=== PATIENT | female | born 1940 | race Caucasian/White ===

== ENCOUNTER 2016-08-21 13:38 | Emergency (ER) | payer OTHER ==
[~2016-08-21] VITALS: Ht 165.1 cm; Wt 45.4 kg
[2016-08-21 14:01] VITALS: BP 169/98
[2016-08-21 14:32] LABS: PT 12.2 SEC (9.4-12.5)
[2016-08-21 14:33] LABS: ABSOLUTE BASOPHIL COUNT 0 /CUMM (0.0-0.2); ABSOLUTE EOSINOPHIL COUNT 0.1 /CUMM (0.0-0.7); ABSOLUTE GRANULOCYTE CT 5.3 /CUMM (1.4-6.5); ABSOLUTE LYMPH COUNT 0.8 /CUMM (1.2-3.4); ABSOLUTE MONOCYTE COUNT 0.6 /CUMM (0.10-0.60); BASOPHIL % 0.4 % (0.0-2.0); EOSINOPHIL % 1.3 % (0-5); GRANULOCYTE % 78.7 % (42.2-75.2); HEMATOCRIT 41.4 % (37-47); MEAN CORPUSCULAR HGB 28.8 PG (27.0-31.0); MEAN CORPUSCULAR HGB CONC 32.3 G/DL (33.0-37.0); MEAN CORPUSCULAR VOLUME 89.3 FL (81.0-99.0); PLATELET COUNT 269 /CUMM (130-400); RBC DISTRIBUTION WIDTH 13.5 % (11.5-14.5); RED BLOOD CELL CT 4.64 /CUMM (4.20-5.40); WHITE BLOOD CELL COUNT 6.8 /CUMM (4.8-10.8)
--- NOTE | 2016-08-21 15:49 | ED GI/GU/ABDOMINAL COMPLAINT ---
History of Present Illness General Chief Complaint: General Adult Stated Complaint: SENT BY DR. SIEGEL FOR ?GI BLEED Source: patient, family Exam Limitations: no limitations Vital Signs & Intake/Output Vital Signs & Intake/Output Vital Signs Date Time Temp Pulse Resp B/P B/P Pulse O2 O2 Flow FiO2 Mean Ox Delivery Rate 08/21 1401 98.2 85 16 169/98 98 Room Air Room Air ED Intake and Output 08/22 0000 08/21 1200 Intake Total 0 Output Total Balance 0 Intake, Oral 0 Patient 99 lb 15.99 oz Weight Allergies Coded Allergies: No Known Allergies (08/21/16) Reconcile Medications Donepezil HCl 5 MG TABLET 1 TAB PO DAILY MEMORY (Reported) Losartan Potassium 50 MG TABLET 1 TAB PO DAILY BP (Reported) Multivitamin (Multi-Day Vitamins) 1 EACH TABLET 1 TAB PO DAILY SUPPLEMENT ( Reported) Pravastatin Sodium 10 MG TABLET 1 TAB PO DAILY CHOLESTEROL (Reported) Triage Note: PT TO TRIAGE WITH ABD PRESSURE SINCE SUNDAY AND HAS HAD A SMALL AMOUNT OF BRIGHT RED BLOOD. PT STATES THE STOOLS HAS BECOME MORE RED. CURRENTLY DENIES PAIN, BUT DOES INCREASE WITH PALPOATION TO LOWER ABD. DENIES N/V POR FEVERS PT DENIES BLOOD THINNERS Triage Nurses Notes Reviewed? yes ? n Is pt currently ? No Onset: Abrupt Duration: day(s): (4) Timing: recent history Location: rectal Radiation: no radiation No Modifying Factors: none HPI: 76 year old female who presents to the ER with her for chief complaint of 4 days of blood mixed with bright red blood. She states that it started 4 days ago while travelling to [facility]. No nausea or vomiting. No blood thinners. Denies any fever or chills. Today she went to see her PCP who referred her here to the ED. Admits to some mild bloating. States she had some blood in her stool earlier today. Previous colonoscopy in 2012 which she states may have had some abnormalities. Past History Travel History Traveled to [place] past 21 day No Medical History Any Pertinent Medical History? see below for history Neurological: dementia EENT: NONE Cardiovascular: hypertension, hyperlipidemia Respiratory: NONE Gastrointestinal: diverticulitis Hepatic: NONE Renal: NONE Musculoskeletal: NONE Psychiatric: NONE Endocrine: NONE Blood Disorders: NONE Cancer(s): NONE Surgical History Surgical History: non-contributory Psychosocial History What is your primary language Ghanaian Tobacco Use: Never used ETOH Use: denies use Illicit Drug Use: denies illicit drug use Family History Hx Contributory? No Review of Systems Review of Systems Constitutional: Denies: chills, fever. EENTM: Reports: no symptoms. Respiratory: Denies: short of breath. Cardiovascular: Denies: chest pain. GI: Reports: see HPI (CR[place]). Genitourinary: Reports: no symptoms. Musculoskeletal: Reports: no symptoms. Skin: Reports: no symptoms. Neurological/Psychological: Reports: anxiety. Hematologic/Endocrine: Reports: bleeding. Immunologic/Allergic: Reports: no symptoms. All Other Systems: Reviewed and Negative Physical Exam Physical Exam General Appearance: alert, awake, anxious, mild distress, thin Head: atraumatic, normal appearance Eyes: Bilateral: normal appearance, PERRL, EOMI. Ears, Nose, Throat, Mouth: moist mucous membrane Neck: normal inspection, supple, full range of motion Respiratory: normal breath sounds, chest non-tender, no respiratory distress Cardiovascular: regular rate/rhythm Peripheral Pulses: 2+ radial (R), 2+ radial (L) Gastrointestinal: normal bowel sounds, soft, non-tender Rectal: BROWN, GUIAC NEGATIVE STOOL Back: normal inspection, normal range of motion Extremities: normal range of motion Neurologic/Psych: no motor/sensory deficits, awake, alert, oriented x 3 Skin: intact, normal color, cyanosis Core Measures ACS in differential dx? No Severe Sepsis Present: No Septic Shock Present: No Progress Differential Diagnosis: ischemic bowel, COLITIS, HEMORRHOIDS, RED STOOLS Plan of Care: Orders Procedure Date/time Status MISTAKE 08/21 1603 Active URINALYSIS 08/21 140 Complete PROTHROMBIN TIME 08/21 1403 Complete LACTIC ACID 08/21 1403 Complete COMPREHENSIVE METABOLIC PANEL 08/21 1403 Complete CBC WITHOUT DIFFERENTIAL 08/21 1403 Complete Laboratory Tests 08/21/16 1703: Lactic Acid Cancelled 08/21/16 1623: Urine Color YEL, Urine Clarity CLEAR, Urine pH 6.5, Ur Specific [place] 1.020, Urine Protein NEG, Urine Ketones NEG, Urine Nitrite NEG, Urine Bilirubin NEG, Urine Urobilinogen 0.2, Ur Leukocyte Esterase NEG, Ur Microscopic EXAM NOT REQUIRED, Urine Hemoglobin NEG, Urine Glucose NEG 08/21/16 1412: Anion Gap 11, Estimated GFR > 60, BUN/Creatinine Ratio 28.6 H, Glucose 82, Lactic Acid 0.9, Calcium 9.8, Total Bilirubin 0.6, AST 39 H, ALT 47, Alkaline Phosphatase 54, Total Protein 7.4, Albumin 4.4, Globulin 3.0, Albumin/Globulin Ratio 1.5, PT 12.2, INR 1.16, CBC w Diff NO MAN DIFF REQ, RBC 4.64, MCV 89.3, MCH 28.8, RDW 13.5, MPV 8.0, Gran % 78.7 H, Lymphocytes % 11.4 L, Monocytes % 8.2, Eosinophils % 1.3, Basophils % 0.4, Absolute Granulocytes 5.3, Absolute Lymphocytes 0.8 L, Absolute Monocytes 0.6, Absolute Eosinophils 0.1, Absolute Basophils 0, PUBS MCHC 32.3 L H/H WNL. ORTHOSTATICS NEGATIVE. STOOL EXAMINATION IS NEGATIVE FOR BLOOD. KAYLA HAD A BM IN THE ED WHICH THE NURSE SAW AND SHE STATES THAT THE STOOL APPEARED REDDISH BUT NOT BLOODY. ABDOMEN IS SOFT, NONTENDER. WILL FOLLOW UP OUTPATITNE WITH GI. HAD PREVIOUS COLONOSCOPY [place] [address] GRIMES BUT PREFERS TO BE REFERRED TO GI. INSTRUCTED TO RETURN IMMEDIATELY FOR WORSENING SYMPTOMS. 4:49 PM NO BLOOD IN STOOL ON EXAM ORTHOSTATICS NEGATIVE H/H BASELINE (HERMELINDA PINK,MAYE) Initial ED EKG: none Departure Departure Time of Disposition: 1646 Disposition: HOME OR SELF CARE Condition: Stable Clinical Impression Primary Impression: GI bleeding Referrals: LAURA PINK,JOANIE Fulton (PCP/Family) Additional Instructions: PLEASE FOLLOW UP WITH DR GRIMES IN THE OFFICE REGARDING YOUR EPISODES OF RECTAL BLEEDING. RETURN IMMEDIATELY FOR ANY WORSENING BLEEDING. Departure Forms: Customer Survey General Discharge Information
[2016-08-21] MEDS ORDERED: DONEPEZIL HCL5 MG PO (15:51)
[2016-08-21] MEDS ORDERED: LOSARTAN POTASS50 M1 PO (15:51)
[2016-08-21] MEDS ORDERED: PRAVASTATIN SOD10 M2 PO (15:51)
[2016-08-21] MEDS ORDERED: MULTI-DAY VITA1 EACH PO (15:57)
== END 2016-08-21 17:00 ==
LOC: ERH 13:38
PROVIDERS: Emergency Medicine
DX: K92.2 Gastrointestinal hemorrhage, unspecified (principal)
CPT/HCPCS: 81003